=== PATIENT | female | born 2000 | race Caucasian/White ===

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

== ENCOUNTER → 2021-11-03 | Outpatient (CLI) | payer OTHER ==
[~2021-11-03] MED LIST: Flagyl500 MG PO
== END | disposition home or self-care (01) ==
LOC: LAB SHORT 07:20 → PLD 07:20 → LAB 07:20
DX: R21 Rash and other nonspecific skin eruption (principal); R23.4 Changes in skin texture
CPT/HCPCS: 88305; 88312